=== PATIENT | male | born 1990 | race Caucasian/White ===

== ENCOUNTER 2017-09-28 23:26 | Emergency (ER) | payer OTHER, SELFPAY | END 2017-09-28 23:42 | disposition home or self-care (01) | LOC: SCSER 23:26 | DX: H10.9 Unspecified conjunctivitis (principal) | CPT/HCPCS: 99283 ==

== ENCOUNTER 2019-05-07 10:17 | Emergency (ER) | payer OTHER, SELFPAY ==
[2019-05-07] MEDS ORDERED: Ibuprofen 800 MG TAB ONE (10:45)
--- NOTE | 2019-05-07 11:32 | RAD ---
XR Ankle Rt 3 View STANDARD: 05/07/2019 10:39 AM CLINICAL INDICATION: Posttraumatic pain COMPARISON: None. FINDINGS: Fracture:No fracture. Arthropathy:None of significance. Incidental findings:None of significance. IMPRESSION: 1. No acute osseous abnormality.
== END 2019-05-07 11:44 | disposition home or self-care (01) ==
LOC: SCSER 10:17
DX: S93.401A Sprain of unspecified ligament of right ankle, initial encounter (principal); X50.9XXA Other and unspecified overexertion or strenuous movements or postures, initial encounter

== ENCOUNTER 2023-01-06 09:31 | Outpatient (CLI) | payer OTHER | END 2023-01-06 09:32 | disposition home or self-care (01) | LOC: SCSRAD 09:31 | PROVIDERS: ATTEND Nurse Practitioner Family | DX: M79.601 Pain in right arm (principal); R00.0 Tachycardia, unspecified ==